=== PATIENT | male | born 1965 | race Caucasian/White ===

== ENCOUNTER 2024-11-26 06:24 | Emergency (ER) | payer MEDICARE, SELFPAY ==
[2024-11-26 06:30] VITALS: BP 142/95; PULSE 77; RESP 16; TEMP 36.6; O2SAT 96; BMI 29.9
--- NOTE | 2024-11-26 06:34 | ED_ITS ---
HPI - Extremity Problem 2 General: Chief complaint: Extremity Problem,Nontraumatic Stated complaint: pain in neck/shoulder/hands Time Seen by Provider: 11/26/24 06:27 History of Present Illness: 59-year-[facility] in his neck and shoulders primarily on the right shoulder. He had seen a chiropractor at some manipulation on this and it actually seemed to worsen. No trauma that he can recall. No previous injury to the neck no surgeries in the past. Denies any fever sweats or chills. Associated symptoms: Deny chest pain, fever(s) or rash Related Data Home Medications Medication Instructions Recorded Confirmed dapagliflozin propanediol 10 mg 10 mg PO DAILY 11/26/24 11/26/24 tablet (Farxiga) ibuprofen 200 mg tablet 200 mg PO Q6H PRN Pain 11/26/24 11/26/24 Previous Rx's Medication Instructions Recorded diclofenac sodium 75 mg 75 mg PO Q12H PRN pain #20 tabs 11/26/24 tablet,delayed release hydrocodone 5 mg-acetaminophen 325 1 tab PO Q6H PRN pain #10 tabs 11/26/24 mg tablet prednisone 20 mg tablet 20 mg PO TID #15 tabs 11/26/24 tizanidine 4 mg tablet 4 mg PO Q6H PRN muscle spasticity 11/26/24 #20 tabs Allergies Allergy/AdvReac Type Severity Reaction Status Date / Time aspirin Allergy Unknown Verified 11/26/24 06:34 gabapentin Allergy Unknown Verified 11/26/24 06:34 latex Allergy Unknown Verified 11/26/24 06:34 metformin Allergy Unknown Verified 11/26/24 06:34 Penicillins Allergy Unknown Verified 11/26/24 06:34 Review of Systems 2 Const: Denies: fever(s) or chills Card: Denies: chest pain Resp: Denies: dyspnea GI: Denies: abdominal pain : Denies: dysuria, urinary frequency or urinary urgency Musc: Reports: neck pain; Denies: back pain Skin/Breast: Denies: rash PFSH ED 2 PFSH: Medical History (Updated 11/26/24 @ 07:46 by Connor Esparza DO) Diabetes mellitus History of CVA (cerebrovascular accident) Physical Exam 2 Const: COMMON NORMALS: no acute distress GENERAL APPEARANCE: cooperative and comfortable ORIENTATION/CONSCIOUSNESS: Yes awake, Yes oriented to person, Yes oriented to place and Yes oriented to time HENMT: COMMON NORMALS: normocephalic, atraumatic and hearing grossly normal bilaterally HEAD & SCALP: normocephalic and atraumatic Resp: COMMON NORMALS: normal respiratory effort, No retractions, No use of accessory muscles and clear to auscultation bilaterally AUSCULTATION: clear to auscultation bilaterally Cardio: COMMON NORMALS: regular rate, regular rhythm and No murmurs present (Cardio) RATE: regular rate RHYTHM: regular rhythm GI: COMMON NORMALS: Soft to palpation and No hepatosplenomegaly present A USCULTATION: Yes normoactive bowel sounds PALPATION: Yes Soft to palpation, No Tenderness to palpation present (GI), No Guarding due to palpation present (GI) and Yes No hepatosplenomegaly present Extremity: COMMON NORMALS: normal to inspection, capillary refill normal, no clubbing, cyanosis or edema, no calf tenderness and no pedal edema Neuro: SENSORIUM/ORIENTATION: Yes oriented to person, Yes oriented to place and Yes oriented to time Skin: COMMON NORMALS: no rashes or lesions noted GENERAL SKIN EXAM: no rashes or lesions noted Course 2 Vital Signs: Vital signs: Vital Signs Temperature 97.8 F 11/26/24 06:30 Pulse Rate 94 11/26/24 08:00 Respiratory Rate 16 11/26/24 07:18 Blood Pressure 152/93 11/26/24 08:00 Pulse Oximetry 91 11/26/24 08:00 Oxygen Delivery Me thod Room Air 11/26/24 07:18 MDM - Extremity (Nontraumatic) Medical Decision Making On exam and does appear to have a cervical nerve impingement. Sensation is intact parker strength slightly decreased pulses equal. No sign of impingement sign. No evidence of zoster. Will discharge the patient home on steroids hydrocodone diclofenac and tizanidine as needed set him up for an outpatient MRI and a referral to Dr. Ledezma. Medical Records I reviewed the patient's medical records. Lab Data I reviewed the patient's lab results. 11/26/24 07:11 11/26/24 07:11 Radiology Impressions Cervical Spine CT 11/26/24 06:43 IMPRESSION: Cervical spondylosis most significant at C5-C6 with moderate bilateral neural foraminal stenosis. Laboratory Results WBC 4.63 10^3/uL (3.29-11.43) 11/26/24 07:11 RBC 4.65 10^6/uL (3.85-5.65) 11/26/24 07:11 Hgb 14.50 g/dL (11.27-16.99) 11/26/24 07:11 Hct 42.4 % (37-53) 11/26/24 07:11 MCV 91.2 fl (82-101) 11/26/24 07:11 MCH 31.2 pg (27-33) 11/26/24 07:11 MCHC 34.2 g/dL (30-55) 11/26/24 07:11 RDW 12.3 % (12.1-15.1) 11/26/24 07:11 Plt Count 255 10^3/cmm (157-399) 11/26/24 07:11 MPV 10.0 fL (7.4-10.4) 11/26/24 07:11 Neut % (Auto) 60.5 % 11/26/24 07:11 Lymph % (Auto) 25.3 % 11/26/24 07:11 Dillon % (Auto) 7.1 % 11/26/24 07:11 Eos % (Auto) 5.6 % 11/26/24 07:11 Baso % (Auto) 1.3 % 11/26/24 07:11 Neut # (Auto) 2.80 10^3/uL (1.8-7.7) 11/26/24 07:11 Lymph # (Auto) 1.2 10^3/uL (0.8-4.8) 11/26/24 07:11 Dillon # (Auto) 0.3 10^3/uL (0.2-0.9) 11/26/24 07:11 Eos # (Auto) 0.3 10^3/uL (0.0-0.8) 11/26/24 07:11 Baso # (Auto) 0.1 10^3/uL (0.0-0.1) 11/26/24 07:11 Nucleated RBC % (auto) 0 % 11/26/24 07:11 Nucleated RBCs # 0.0 /100WBC 11/26/24 07:11 Sodium 136 mmol/L (136-145) 11/26/24 07:11 Potassium 3.8 mmol/L (3.5-5.1) 11/26/24 07:11 Chloride 100 mmol/L (98-107) 11/26/24 07:11 Carbon Dioxide 22 mmol/L (22-29) 11/26/24 07:11 Anion Gap 17.8 (5-19) 11/26/24 07:11 BUN 9 mg/dL (8-23) 11/26/24 07:11 Creatinine 0.8 mg/dL (0.7-1.2) 11/26/24 07:11 GFR Calculation 98.6 mL/min (90-130) 11/26/24 07:11 Glucose 190 mg/dL (65-115) H 11/26/24 07:11 Calculated Osmolality 286 mOsm/kg (285-295) 11/26/24 07:11 Calcium 8.7 mg/dL (8.5-10.5) 11/26/24 07:11 Total Bilirubin 0.3 mg/dL (0.15-1.2) 11/26/24 07:11 AST 18 U/L (0-40) 11/26/24 07:11 ALT 16 U/L (0-41) 11/26/24 07:11 Alkaline Phosphatase 66 U/L (40-130) 11/26/24 07:11 C-Reactive Protein 51.4 mg/L (0.0-4.9) H 11/26/24 07:11 Total Protein 6.7 g/dL (6.6-8.7) 11/26/24 07:11 Albumin 3.7 g/dL (3.5-5.2) 11/26/24 07:11 Globulin 3.0 g/dL (1.3-4.6) 11/26/24 07:11 All radiology interpretation(s) finalized by discharge Discharge Plan Discharge Patient Disposition: Home Clinical Impression: Cervical radiculopathy Prescriptions: New tizanidine 4 mg tablet 4 mg PO Q6H PRN (Reason: muscle spasticity) Qty: 20 0RF Rx Instructions: do not exceed 3 doses per 24 hrs hydrocodone-acetaminophen 5-325 mg tablet 1 tab PO Q6H PRN (Reason: pain) Qty: 10 0RF prednisone 20 mg tablet 20 mg PO TID Qty: 15 0RF Rx Instructions: 1 p.o. 3 times daily x3 days, 1 p.o. twice daily x2 days, 1 p.o. daily x2 days diclofenac sodium 75 mg tablet,delayed release (DR/EC) 75 mg PO Q12H PRN (Reason: pain) Qty: 20 0RF No Action ibuprofen 200 mg Tablet 200 mg PO Q6H PRN (Reason: Pain) dapagliflozin propanediol [Farxiga] 10 mg tablet 10 mg PO DAILY Discharge Orders: Discharge ED (Routine); Ordered 11/26/24 Ordered By: Connor Esparza Referrals: Norris Shepard MD [Family Provider] - Discharge Diet: Usual diet Discharge Activity: Increase activity as tolerated Patient Instructions: Cervical Radiculopathy (ED), Opioid Safety, Pain Management Activity Restrictions/Additional Instructions: Thank you for choosing [facility] for your healthcare needs today. It is very important that you follow up as instructed or that you return to the Emergency Department should you have concerns or if your condition changes or worsens in any way. You were seen in the emergency room with complaints of neck pain radiating into your right arm. Based on your exam and the CT findings suspect you have a nerve root irritation in the cervical spine that is affecting your arm. Recommend against any manipulation of your neck. We will refer you for an MRI of the cervical spine and follow-up with Dr. Ledezma. You are given medications to use to control symptoms. Start the prednisone tomorrow. The diclofenac hydrocodone or tizanidine you can use as needed for symptoms Coding Level of Care Code ED Manager Cardiology for Reji Becerra
--- NOTE | 2024-11-26 06:43 | CTR_ITS ---
PROCEDURE INFORMATION: Exam: CT Cervical Spine Without Contrast Exam date and time: 11/26/2024 6:54 AM Age: 59 years old Clinical indication: Radicular pain (radiculopathy); Cervicothoracic region; Additional info: Neck pain with right arm radiculopathy TECHNIQUE: Imaging protocol: Computed tomography of the cervical spine without contrast. Radiation optimization: All CT scans at this facility use at least one of these dose optimization techniques: automated exposure control; mA and/or kV adjustment per patient size (includes targeted exams where dose is matched to clinical indication); or iterative reconstruction. COMPARISON: No relevant prior studies available. RADIATION DOSE METRICS: Total DLP (mGy-cm): 202.47 FINDINGS: Bones: Disc osteophyte complex with uncovertebral hypertrophy of the cervical spine most significant at C5-C6 with moderate bilateral neural foraminal narrowing and at C4-C5 with mild abutment of the ventral thecal sac. No significant spinal canal stenosis. Lungs: Lung apices are normal. Soft tissues: Unremarkable. CT/CT cervical spin wo con* [id number] IMPRESSION: Cervical spondylosis most significant at C5-C6 with moderate bilateral neural foraminal stenosis.
[2024-11-26] MEDS: ketorolac 30 mg/mL INJ IVP (07:16)
[2024-11-26] MEDS: orphenadrine 30 mg/mL Inj 2 mL 60 MG IVP (07:16)
[2024-11-26] MEDS: dexamethasone 10 mg/mL INJ IVP (07:17)
[2024-11-26 07:18] VITALS: BP 172/99; PULSE 88; RESP 16; O2SAT 94
[2024-11-26 07:20] LABS: Basophils # 0.1 10^3/uL (0.0-0.1); Basophils % 1.3 %; Eosinophils # 0.3 10^3/uL (0.0-0.8); Eosinophils % 5.6 %; Hematocrit 42.4 % (37-53); Lymphocytes # 1.2 10^3/uL (0.8-4.8); Lymphocytes % 25.3 %; Mean Corpuscular HGB Conc 34.2 g/dL (30-55); Mean Corpuscular Hemoglobin 31.2 pg (27-33); Mean Corpuscular Volume 91.2 fl (82-101); Monocytes # 0.3 10^3/uL (0.2-0.9); Monocytes % 7.1 %; Neutrophils % 60.5 %; Nucleated Red Blood Cells % 0 %; Platelet Count 255 10^3/cmm (157-399); Red Blood Count 4.65 10^6/uL (3.85-5.65); Red Cell Distribution Width 12.3 % (12.1-15.1); White Blood Count 4.63 10^3/uL (3.29-11.43)
[2024-11-26 07:36] LABS: Alanine Aminotransferase 16 U/L (0-41); Albumin Level 3.7 g/dL (3.5-5.2); Alkaline Phosphatase 66 U/L (40-130); Anion Gap 17.8 (5-19); Aspartate Amino Transferase 18 U/L (0-40); Blood Urea Nitrogen 9 mg/dL (8-23); C Reactive Protein 51.4 mg/L (0.0-4.9); Calcium 8.7 mg/dL (8.5-10.5); Carbon Dioxide 22 mmol/L (22-29); Chloride 100 mmol/L (98-107); Creatinine Clr Calc Pharmacy 130.8956; Glomerular Filtration Rate 98.6 mL/min (90-130); Glucose 190 mg/dL (65-115); Osmolality Calculated 286 mOsm/kg (285-295); Potassium 3.8 mmol/L (3.5-5.1); Sodium 136 mmol/L (136-145); Total Bilirubin 0.3 mg/dL (0.15-1.2); Total Protein 6.7 g/dL (6.6-8.7)
[2024-11-26 08:00] VITALS: BP 152/93; PULSE 94; O2SAT 91
--- NOTE | 2024-11-28 09:56 | DCPLANNER ---
FAXED OUTPATIENT MRI ORDER TO SCHEDULING
== END 2024-11-26 08:01 | disposition home or self-care (01) ==
PROVIDERS: Emergency Provider Family Medicine; Family Provider Internal Medicine
DX: M54.12 Radiculopathy, cervical region (principal); Z86.73 Personal history of transient ischemic attack (TIA), and cerebral infarction without residual deficits; E11.9 Type 2 diabetes mellitus without complications
CPT/HCPCS: 72125; 80053; 85025; 86140; 96374; 96375; 99285; J1100; J1885; J2360

== ENCOUNTER → 2024-12-18 15:42 | Outpatient (BNVA) | payer MEDICARE, SELFPAY | PROVIDERS: PCP Family Medicine; Referring Provider Family Medicine; Visit Provider Specialist | DX: G56.03 Carpal tunnel syndrome, bilateral upper limbs (principal); R20.0 Anesthesia of skin; R20.2 Paresthesia of skin | CPT/HCPCS: 95910 ==

== ENCOUNTER 2025-02-03 07:03 | Outpatient (CLI) | payer SELFPAY ==
--- NOTE | 2025-02-03 07:18 | MR_ITS ---
WS: [id number] MRI CERVICAL SPINE NONCONTRAST TECHNIQUE: Sagittal T1, T2 and STIR imaging. Axial T2, gradient, and fiesta imaging. CLINICAL INFORMATION: CERVICAL RADICULOPATHY COMPARISON: None. FINDINGS: Straightening of the normal cervical lordosis. Mild spondylitic changes. Mild disc bulging in the mid cervical spine. C2-C3: Mild facet arthropathy. C3-C4: RIGHT paracentral disc osteophyte protrusion. Slight contact of the cervical cord. Mild facet arthropathy. Mild LEFT bony foraminal narrowing. C4-C5: Central disc osteophyte protrusion with mild central canal stenosis. Indentation on the ventral cervical cord. Mild LEFT greater than RIGHT bony foraminal narrowing. Moderate facet arthropathy. C5-C6: Disc osteophyte complex with endplate ridging. Moderate central canal stenosis. Moderate LEFT and mild RIGHT bony foraminal narrowing. Moderate facet arthropathy. C6-C7: Disc osteophyte protrusion with slight effacement of the ventral thecal sac. Mild LEFT foraminal narrowing. Mild facet arthropathy. C7-T1: Normal. Visualized brain stem structures: Normal. Prevertebral soft tissues: Normal. MR/MR cervical spin wo con* [id number] IMPRESSION: 1. Straightening of the normal cervical lordosis. 2. Moderate central canal stenosis C5-C6 due to disc osteophyte complex. Moder ate LEFT bony foraminal narrowing at this level. 3. Central disc osteophyte protrusion C4-5 with indentation of the cervical co rd and mild central canal stenosis. 4. Shallow RIGHT paracentral protrusion C3-C4.
== END 2025-02-03 07:04 | disposition home or self-care (01) ==
PROVIDERS: PCP Family Medicine; Visit Provider Family Medicine
DX: M54.12 Radiculopathy, cervical region (principal); M48.02 Spinal stenosis, cervical region; M25.78 Osteophyte, vertebrae; M50.221 Other cervical disc displacement at C4-C5 level; R93.7 Abnormal findings on diagnostic imaging of other parts of musculoskeletal system; M50.21 Other cervical disc displacement, high cervical region; M47.892 Other spondylosis, cervical region; M50.223 Other cervical disc displacement at C6-C7 level
CPT/HCPCS: 72141

== ENCOUNTER → 2025-07-24 10:44 | Outpatient (BNVA) | payer MEDICARE, SELFPAY | PROVIDERS: PCP Family Medicine; Visit Provider Internal Medicine | DX: E11.9 Type 2 diabetes mellitus without complications (principal); Z86.73 Personal history of transient ischemic attack (TIA), and cerebral infarction without residual deficits; E78.2 Mixed hyperlipidemia; Z79.4 Long term (current) use of insulin | CPT/HCPCS: 99204 ==

== ENCOUNTER → 2025-10-20 10:33 | Outpatient (BNVA) | payer MEDICARE, SELFPAY | PROVIDERS: PCP Family Medicine; Visit Provider Internal Medicine | DX: E11.9 Type 2 diabetes mellitus without complications (principal) | CPT/HCPCS: 80053; 80061; 82043; 83036 ==